=== PATIENT | female | born 1960 | race Two or more races ===

== ENCOUNTER 2025-07-12 06:19 | Day surgery (SDC) | payer BC, OTHER ==
[2025-07-09 11:18] VITALS: BMI 23.2
[2025-07-12 11:11] VITALS: TEMP 98.2
[2025-07-12 11:35] VITALS: BP 130/61; PULSE 75; RESP 16
== END 2025-07-12 11:55 | disposition home or self-care (01) ==
LOC: JASU-ENDO 06:19
PROVIDERS: ATTEND Internal Medicine Gastroenterology
PROC: 0DB98ZX Excision of Duodenum, Via Natural or Artificial Opening Endoscopic, Diagnostic (ICD-10-PCS; 2025-07-12)
PROC: 0DB78ZX Excision of Stomach, Pylorus, Via Natural or Artificial Opening Endoscopic, Diagnostic (ICD-10-PCS; 2025-07-12)
PROC: 0DB68ZX Excision of Stomach, Via Natural or Artificial Opening Endoscopic, Diagnostic (ICD-10-PCS; 2025-07-12)
PROC: 0DJD8ZZ Inspection of Lower Intestinal Tract, Via Natural or Artificial Opening Endoscopic (ICD-10-PCS; principal; 2025-07-12 09:30)
DX: Z12.11 Encounter for screening for malignant neoplasm of colon (principal); D12.8 Benign neoplasm of rectum; K64.8 Other hemorrhoids; K29.50 Unspecified chronic gastritis without bleeding; D50.9 Iron deficiency anemia, unspecified
CPT/HCPCS: 88305-TC; 88342-TC